=== PATIENT | female | born 1995 | race African-American/Black ===

== ENCOUNTER 2016-06-14 20:08 | Emergency (ER) | payer OTHER ==
[2016-06-14 20:19] VITALS: BP 145/95; PULSE 103; TEMP 98.6; BMI 31.6
[2016-06-14 21:05] LABS: BASOPHIL 1.3 % (0-2.0); EOSINOPHIL 2.1 % (0-4.5); MCHC 32.9 g/dl (32.0-36.0); MEAN CELL VOLUME 79.1 fl (80-96); MEAN PLT VOLUME 7.9 fl (7.5-11.1); NEUTROPHILS 54.5 % (42.8-82.8); PLATELET COUNT 514 K/MM3 (134-434); RDW 14.4 % (11.6-15.6); WHITE BLOOD COUNT 7.3 K/mm3 (4.0-10.0)
[2016-06-14] MEDS ORDERED: METOCLOPRAMIDE HCL INJECTION 10 MG/2 ML VIAL IVPB ONE (21:06)
[2016-06-14] MEDS ORDERED: morphine CARPU-JECT 4 MG/1 ML DISP.SYRIN IVPUSH ONE (21:06)
[2016-06-14] MEDS ORDERED: SODIUM CHLORIDE 1,000 ML IV STA ×2 (21:06→22:52)
[2016-06-14] MEDS ORDERED: morphine CARPU-JECT 4 MG/1 ML DISP.SYRIN ONE (21:17)
[2016-06-14] MEDS ORDERED: METOCLOPRAMIDE HCL INJECTION 10 MG/2 ML VIAL ONE (21:17)
--- NOTE | 2016-06-14 21:24 | PDOC ---
History of Present Illness - General Chief Complaint: Pain Stated Complaint: ABD PAIN/NAUSEA/BACK PAIN Time Seen by Provider: 06/14/16 20:46 History Source: Patient Exam Limitations: No Limitations - History of Present Illness Travel History: No Initial Comments: 06/14/16 21:19 20yo Female patient presents to ED w/ mother c/o abd pain x 1 hour ago. Patient mother reports hx of ovarian cyst. Mother states this has been an ongoing situation but today it is bad. Patient was recently seen at [facility] and prescribed control to manage symptoms. Associated back pain, nausea/ vomiting w/ abd cramps. Denies fever, dysuria, hematuria, constipation, trauma, or any other complaints at this time. LNMP: Current. Timing/Duration: reports: getting worse Quality: reports: severe, cramping Abdominal Pain Onset Location: reports: RLQ Pain Radiation: reports: back Activities at Onset: reports: no specific activity Treatment Prior to Arrive: worse with: analgesics, antacids, cold pack, heat, laxative, enema, other Aggravating Factors: worse with: None, Defecation, Eating, Emotional upset, Exertion, [place], Movement, Voiding, Change in position Alleviating Factors: worse with: None, Belching, Shallow Breathing, Defecation, Eating, Holding Breath, Passing Gas, Change in Position, Rest, Voiding, Vomiting Past History - Travel Traveled outside of the country in the last 30 days: No Close contact w/someone who was outside of country & ill: No - Past Medical History Allergies/Adverse Reactions: Allergies Allergy/AdvReac Type Severity Reaction Status Date / Time No Known Allergies Allergy Verified 01/19/16 22:12 Home Medications: Ambulatory Orders NK [No Known Home Medication] 06/14/16 Asthma: Yes Other medical history: ovarian cyst - Immunization History Td Vaccination: Yes Immunization Up to Date: Yes - Psycho/Social/Smoking Cessation Hx Anxiety: No Suicidal Ideation: No Smoking Status: No Smoking History: Never smoked Number of Cigarettes Smoked Daily: 0 Information on smoking cessation initiated: No Hx Alcohol Use: Yes (SOCIAL) Drug/Substance Use Hx: No Substance Use Type: None Abd/GI Specific PMHX - Complaint Specific PMHX Colitis: No Diverticulitis: No Gall Bladder Disease: No GERD: No Hepatitis: No Irritable Bowel Synd (IBS): No Pancreatitis: No GI Ulcer Disease: No Other History: Ovarian Cyst. Review of Systems - Review of Systems Able to Perform ROS?: Yes Is the patient limited Cymro proficient: No Constitutional: No: Chills, Fever Respiratory: No: Cough, Orthopnea, Shortness of Breath, SOB at Rest, Stridor, Wheezing, Hemoptysis Cardiac (ROS): No: Chest Pain, Edema, Lightheadedness, Palpitations, Syncope, Chest Tightness ABD/GI: Yes: Nausea, Vomiting, Abdominal cramping. No: Abdominal Distended, Abd. Pain w/ defecation, Blood Streaked Bowels, Constipated, Diarrhea, Difficulty Swallowing, Poor Appetite, Poor Fluid Intake, Rectal Bleeding, Indigestion, Tarry Stools : No: Burning, Dysuria, Discharge, Frequency, Flank Pain, Hematuria, Pain, Urgency Musculoskeletal: Yes: Back Pain Integumentary: No: Erythema, Rash Neurological: No: Headache, Numbness, Paresthesia, Seizure, Tingling, Tremors, Weakness, Ataxia, Dizziness All Other Systems: Reviewed and Negative *Physical Exam - Vital Signs Last Vital Signs Temp Pulse Resp BP Pulse Ox 98.6 F 103 H 20 145/95 100 06/14/16 20:16 06/14/16 20:16 06/14/16 20:16 06/14/16 20:16 06/14/16 21:11 - Physical Exam General Appearance: Yes: Nourished, Appropriately Dressed, Apparent Distress, Moderate Distress. No: Mild Distress, Severe Distress Neck: positive: Trachea midline, Supple Respiratory/Chest: positive: Lungs Clear, Normal Breath Sounds. negative: Respiratory Distress, Accessory Muscle Use, Labored Respiration, Rapid RR Cardiovascular: positive: Regular Rhythm, Regular Rate Gastrointestinal/Abdominal: positive: Normal Bowel Sounds, Soft, Tenderness ( Mild RLQ on light palpation.), Other (Negative Obturator sign). negative: Distended, Guarding, Rebound Musculoskeletal: positive: Normal Inspection. negative: CVA Tenderness Extremity: positive: Normal Capillary Refill, Normal Inspection, Normal Range of Motion Integumentary: positive: Normal Color, Dry, Warm Neurologic: positive: email marketing executive II-XII NML intact, Fully Oriented, Alert, Normal Mood/ Affect, Normal Response, Motor Strength 5/5 ED Treatment Course - LABORATORY CBC & Chemistry Diagram: 06/14/16 20:55 06/14/16 20:55 - ADDITIONAL ORDERS Additional order review: 06/14/16 20:55 RBC 4.74 MCV 79.1 L MCHC 32.9 RDW 14.4 MPV 7.9 Neutrophils % 54.5 Lymphocytes % 32.0 Monocytes % 10.1 Eosinophils % 2.1 Basophils % 1.3 - RADIOLOGY Radiology Studies Ordered: Category Date Time Status PELVIS(OTHER) US [US] Stat Ultrasound 06/14/16 21:03 Ordered *DC/Admit/Observation/Transfer Diagnosis at time of Disposition: Generalized abdominal cramping Menorrhagia Qualifiers: Menorrahagia type: with onset of menstrual periods Qualified Code(s): N92.2 - Excessive menstruation at puberty - Discharge Dispostion Disposition: HOME Condition at time of disposition: Improved Admit: No - Patient Instructions Printed Discharge Instructions: DI for Menorrhagia Additional Instructions: FOLLOW UP WITH YOUR MANAGER ASSISTED LIVING DOCTOR SCHEDULED. CONTINUE TAKING YOUR MEDICATIONS PRESCRIBED. TYLENOL OR MOTRIN FOR PAIN. TRY HEAT COMPRESS TO ABDOMEN DURING MENSTRUAL CYCLES. RETURN IF ANY CONCERNS FOR FURTHER EVALUATION. Print Language: TUNISIAN
[2016-06-14 21:27] LABS: ALBUMIN 3.5 g/dl (3.4-5.0); ANION GAP 9 (8-16); CO2 24 mmol/L (21-32); CREATININE 0.8 mg/dL (0.55-1.02); GLUCOSE,RANDOM 88 mg/dL (74-106); SGOT/AST 12 U/L (15-37); SGPT/ALT 23 U/L (12-78); TOT PROT 7.5 g/dl (6.4-8.2)
[2016-06-14 21:28] LABS: ALK PHOS 66 U/L (45-117)
[2016-06-14 21:33] LABS: BILIRUBIN,TOTAL < 0.1 mg/dL (0.2-1.0)
[2016-06-14 23:26] LABS: URINE APPEARANCE CLOUDY; URINE BILIRUBIN NEGATIVE (NEGATIVE); URINE COLOR RED; URINE GLUCOSE (UA) NEGATIVE (NEGATIVE); URINE KETONE NEGATIVE (NEGATIVE); URINE NITRITE NEGATIVE (NEGATIVE); URINE UROBILINOGEN NEGATIVE E.U./dl (0.2-1.0)
[2016-06-14 23:29] LABS: URINE BLOOD 3+ (NEGATIVE); URINE LEUK ESTERASE TRACE (NEGATIVE); URINE PROTEIN 2+ (NEGATIVE)
[2016-06-14 23:47] LABS: URINE MUCUS RARE; URINE RBC 6197 /hpf (0-3); URINE WBC 83 /hpf (3-5)
== END 2016-06-14 23:54 | disposition home or self-care (01) ==
LOC: JER 20:08
PROC: 3E033NZ Introduction of Analgesics, Hypnotics, Sedatives into Peripheral Vein, Percutaneous Approach (ICD-10-PCS; principal; 2016-06-14)
PROC: 3E033GC Introduction of Other Therapeutic Substance into Peripheral Vein, Percutaneous Approach (ICD-10-PCS; 2016-06-14)
DX: N92.0 Excessive and frequent menstruation with regular cycle (principal); N94.6 Dysmenorrhea, unspecified; R10.31 Right lower quadrant pain; N83.209 Unspecified ovarian cyst, unspecified side
CPT/HCPCS: 36415; 76830-TC; 76856-TC; 80053; 81003; 81015; 82150; 83690; 84702; 84703; 85025; 99284-25